=== PATIENT | female | born 1925 | race African-American/Black ===

== ENCOUNTER 2017-06-14 09:31 | Emergency (ER) | payer OTHER ==
[~2017-06-14] VITALS: Ht 170.2 cm; Wt 65.8 kg
--- NOTE | ~2017-06-14 | CR243 ---
[facility] A Service of [facility] RADIOLOGY TEXT RESULTS PATIENT: JOCELYN MANZO LOCATION: [facility] : [birth year] UNIT #: [id number] AGE: [address]: Delmy Paulson MD SEX: F ORDER DR: [id number] [facility] [address] [place], [place] [address] [id number] E MR#: [id number] Acc #: [id number] NAME: JOCELYN MANZO : 1925 SEX: F STUDY DATE/TIME: 06/14/2017 11:36 UNIT: [facility] ROOM: STUDY DESCRIPTION: CR Thoracic Spine 3 Views Attending Physician: Delmy Paulson M.D. Ordering Physician: Delmy Paulson M.D. Primary Care Physician: Erwin Parker M.D. MEDICAL IMAGING REPORT This report is preliminary unless electronic signature is present EXAM Thoracic series 06/06/2017 INDICATIONS 89-year-old female with history of fall today. Pain in the mid to lower back. TECHNIQUE 3 views of the thoracic spine were performed. COMPARISON No comparisons. FINDINGS The bones are osteoporotic. There is motion degradation. These were apparently the best images possible. Cervicothoracic junction intact. No distinct fracture or malalignment. Mild S-shaped thoracic scoliosis. There is multilevel degenerative change. Old healed granulomatous disease. Atherosclerotic calcification of the aorta. IMPRESSION 1. Limited study secondary to motion and exposure factors. 2. Osteoporosis with degenerative changes but no acute fracture or malalignment. Dictated by... Danny George M.D. THIS IS AN ELECTRONICALLY VERIFIED REPORT Danny George M.D. at 06/15/2017 7:19 AM CHARLESY/saad TD: 06/14/2017 18:25 [facility] A Service of [facility] RADIOLOGY TEXT RESULTS PATIENT: JOCELYN MANZO LOCATION: [facility] : [birth year] UNIT #: [id number] AGE: [address]: Delmy Paulson MD SEX: F ORDER DR: JOB #: [id number] MEDICAL IMAGING REPORT Page 1 of 1 COPY
--- NOTE | ~2017-06-14 | CR181 ---
[facility] A Service of [facility] RADIOLOGY TEXT RESULTS PATIENT: JOCELYN MANZO LOCATION: [facility] : [birth year] UNIT #: [id number] AGE: [address]: Delmy Paulson MD SEX: F ORDER DR: [id number] [facility] [address] [place], [place] [address] [id number] E MR#: [id number] [facility] #: [id number] NAME: JOCELYN MANZO : 1925 SEX: F STUDY DATE/TIME: 06/14/2017 11:35 UNIT: [facility] ROOM: STUDY DESCRIPTION: CR Lumbar Spine 2 or 3 Views Attending Physician: Delmy Paulson M.D. Ordering Physician: Delmy Paulson M.D. Primary Care Physician: Erwin Parker M.D. MEDICAL IMAGING REPORT This report is preliminary unless electronic signature is present EXAM Lumbar series, 06/14/2017 INDICATION 89-year-old female who fell today, pain in the mid to lower back. TECHNIQUE 3 views of the lumbar spine. COMPARISON There are no comparisons. FINDINGS The bones are osteoporotic. Vertebral body heights and alignment are preserved. No acute fracture. There is degenerative disc disease at L4-5 and L5-S1. At least mild facet arthropathy at L4-5 and L5-S1. Atherosclerotic calcifications are present. There is a probable underlying aortic aneurysm incompletely characterized on this examination but perhaps measuring up to at 4.0 cm. There is a right pelvic vascular stent. Degenerative change of both SI joints present. IMPRESSION 1. Osteoporosis. Degenerative changes but no acute fracture or malalignment. 2. Atherosclerotic disease with findings suspicious for an aortic aneurysm measuring on the order of about 4.0 cm. This is incompletely characterized or assessed with plain film technique. Dictated by... Danny George M.D. THIS IS AN ELECTRONICALLY VERIFIED REPORT Danny George M.D. at 06/15/2017 7:18 AM [facility] A Service of [facility] RADIOLOGY TEXT RESULTS PATIENT: [facility]OC[facility] MAN[id number] [birth year] UNIT #: [id number] AGE: [address]: Delmy Paulson MD SEX: F ORDER DR: JEANETTE/deepak TD: 06/14/2017 17:28 JOB #: [id number] MEDICAL IMAGING REPORT Page 1 of 1 COPY
--- NOTE | ~2017-06-14 | CT101 ---
[facility] A Service of [facility] RADIOLOGY TEXT RESULTS PATIENT: JOCELYN MANZO LOCATION: [facility] : [birth year] UNIT #: [id number] AGE: [address]: Delmy Paulson MD SEX: F ORDER DR: [id number] [facility] [address] [place], [place] [address] [id number] E MR#: [id number] [facility] #: [id number] NAME: JOCELYN MANZO : 1925 SEX: F STUDY DATE/TIME: 06/14/2017 11:12 UNIT: [facility] ROOM: STUDY DESCRIPTION: CT Maxillofacial Area Wo Cont Attending Physician: Delym Paulson M.D. Ordering Physician: Delmy Paulson M.D. Primary Care Physician: Erwin Parker M.D. MEDICAL IMAGING REPORT This report is preliminary unless electronic signature is present EXAM CT maxillofacial area 06/14/2017 HISTORY Fell at home this a.m., fell approximately 3 feet. No loss of consciousness. Fell out of bed trying to use bathroom. Contusion to the left forehead, most tenderness facial pain. TECHNIQUE CT facial bones performed without administration of intravenous contrast. Bone and soft tissue windows reviewed. Sagittal, coronal reconstructions performed. This CT exam was performed with one or more of the following radiation dose reduction techniques: automatic exposure control, adjustment of mA and/or kV according to patient size, and iterative reconstruction. FINDINGS Visualized portions of brain show no acute abnormality. Please see dedicated CT head for further assessment. The intraorbital soft tissues are unremarkable. The nasopharyngeal, oral pharyngeal, pharyngeal mucosal, retropharyngeal spaces show no acute abnormality. Note made of right palatine tonsillar tonsilliths. Extensive atherosclerotic arterial calcification. No aneurysm. Soft tissue hematoma central and left paracentral forehead measuring about 3.9 cm in diameter by about 1 cm in thickness without soft tissue defect, subcutaneous air or radiodense foreign body. Visualized calvarium intact. There is a questionable area of soft tissue irregularity left superolateral periorbital soft tissues. It is unclear if this is a raised skin lesion, traumatic laceration or bandaging artifact. Correlate with exam. There is a 3 mm projection from skin of the lateral right upper eyelid region. Also unclear if this is a raised skin lesion or post-traumatic laceration. Correlate with exam. The nasal bones are intact. The nasal septum deviates to right. The ostiomeatal complexes are patent. The bony orbital structures are intact. [facility]. [facility] A Service of [facility] RADIOLOGY TEXT RESULTS PATIENT: JOCELYN MANZO LOCATION: [facility] : [birth year] UNIT #: [id number] AGE: [address]: Delmy Paulson MD SEX: F ORDER DR: Paranasal sinuses, mastoid air cells clear. Zygomas, zygomatic arches, pterygoid plates intact. The mandible is intact. There is marked anterior subluxation of the left temporomandibular joint. This is felt secondary to chronic degenerative change and is stable in appearance compared to a CT of the head dated 04/23/2004. Extensive atherosclerotic arterial calcifications. The visualized cervical spine shows no traumatic appearing abnormality. IMPRESSION 1. No traumatic fracture. 2. 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 Similar appearance on a CT of the head dated 04/23/2004. 3. Central and left paracentral forehead hematoma measuring about 3.9 cm in diameter by about 1 cm in thickness without soft tissue defect, subcutaneous air or radiodense foreign body. 4. Question cutaneous irregularities along the lateral aspects of the periorbital soft tissues bilaterally. See discussion above. These may represent bandaging artifact or raised skin lesions. Traumatic cutaneous irregularity not excluded. Correlate with exam. 5. Extensive vascular calcification. Dictated by... Jamie Craig M.D. THIS IS AN ELECTRONICALLY VERIFIED REPORT Jamie Craig M.D. at 06/15/2017 2:07 PM ANASTASIYAK/saad TD: 06/14/2017 18:40 JOB #: [id number] MEDICAL IMAGING REPORT Page 1 of 1 COPY
--- NOTE | ~2017-06-14 | CT52 ---
[facility] A Service of [facility] RADIOLOGY TEXT RESULTS PATIENT: JOCELYN MANZO LOCATION: [facility] : [birth year] UNIT #: [id number] AGE: [address]: Delmy Paulson MD SEX: F ORDER DR: [id number] [facility] [address] [place], [place] [address] [id number] E MR#: [id number] Acc #: [id number] NAME: JOCELYN MANZO : 1925 SEX: F STUDY DATE/TIME: 06/14/2017 11:09 UNIT: [facility] ROOM: STUDY DESCRIPTION: CT Cervical Spine Wo Cont Attending Physician: Delmy Paulson M.D. Ordering Physician: Delmy Paulson M.D. Primary Care Physician: Erwin Parker M.D. MEDICAL IMAGING REPORT This report is preliminary unless electronic signature is present EXAM CT cervical spine without contrast, 06/14/2017, 1109 hours. CLINICAL HISTORY 89-year-old woman who fell at home this morning approximately 3 feet. Neck pain since fall with contusion left forehead. COMPARISON None TECHNIQUE Thin cut axial noncontrasted images were obtained from the posterior fossa through the upper thoracic spine without contrast. Sagittal and coronal reconstructions were performed. Total exam DLP 538 mGy-cm. This CT exam was performed with one or more of the following radiation dose reduction techniques: automatic exposure control, adjustment of mA and/or kV according to patient size, and iterative reconstruction. FINDINGS Limited views through the posterior fossa are negative. There is no skull base fracture. The mastoid air cells are clear. C1-2 articulation demonstrates mild spurring. There is no dens fracture. There is multilevel degenerative disc disease in the cervical spine with Schmorl nodes at the superior endplate of T4 and inferior endplate of C5. There is endplate irregularity and spurring with no fracture or subluxation. C2-3 is normal. C3-4 is normal. [facility] A Service of [facility] RADIOLOGY TEXT RESULTS PATIENT: JOCELYN MANZO [id number] [birth year] UNIT #: [id number] AGE: [address]: Delmy Paulson MD SEX: F ORDER DR: C4-5 demonstrates degenerative disc disease without central canal or foraminal stenosis. There is severe degenerative disc disease with facet arthropathy at C5-6 and C6-7. No central canal or foraminal narrowing. IMPRESSION 1. There is multilevel degenerative disc disease and facet degenerative change without acute fracture, subluxation, or canal stenosis. 2. The dens is intact. 3. Limited views through the posterior fossa are normal. There is no skull base fracture. Dictated by... Laura Kumar M.D. THIS IS AN ELECTRONICALLY VERIFIED REPORT Laura Kumar M.D. at 06/15/2017 9:27 AM GARRICK/sina TD: 06/14/2017 17:22 JOB #: [id number] MEDICAL IMAGING REPORT Page 1 of 1 COPY
--- NOTE | ~2017-06-14 | CT71 ---
[facility] A Service of [facility] & [facility] RADIOLOGY TEXT RESULTS PATIENT: JOCELYN MANZO LOCATION: [facility] : [birth year] UNIT #: [id number] AGE: [address]: Delmy Paulson MD SEX: F ORDER DR: [id number] [facility] [address] [place], [place] [address] [id number] E MR#: [id number] [facility] #: [id number] NAME: JOCELYN MANZO : 1925 SEX: F STUDY DATE/TIME: 06/14/2017 11:15 UNIT: [facility] ROOM: STUDY DESCRIPTION: CT Head Wo Contrast Attending Physician: Delmy Paulson M.D. Ordering Physician: Delmy Paulson M.D. Primary Care Physician: Erwin Parker M.D. MEDICAL IMAGING REPORT This report is preliminary unless electronic signature is present EXAM CT head, 06/14/2017 HISTORY Fell at home this a.m. Fell approximately 3 feet. No loss of consciousness. Fell out of bed trying to use bathroom. Contusion to the left forehead most tenderness facial pain. TECHNIQUE CT head performed skull base through vertex without intravenous contrast. This CT exam was performed with one or more of the following radiation dose reduction techniques: automatic exposure control, adjustment of mA and/or kV according to patient size, and iterative reconstruction. COMPARISON 04/23/2004 FINDINGS Brainstem unremarkable. Cerebellum and cerebral hemispheres show overall preservation faust matter-white matter differentiation. No intracranial hemorrhage. No evidence of acute cortical ischemia. The midline structures are nondisplaced. Basal ganglia are intact. Periventricular and deep white matter tract probable sequelae of chronic microvascular ischemia. More pronounced in the bilateral frontal lobes. No intra or extraaxial mass effect or abnormal intracranial fluid collection. The ventricles, cisterns and sulci show [id number] generalized enlargement consistent with generalized atrophy. There are cavernous carotid and distal vertebral arterial calcifications. The intraorbital soft tissues are unremarkable. No fracture. The visualized paranasal sinuses and mastoid air cells are clear. There is a frontal hematoma in the forehead region measuring about 4.1 cm in diameter and about 8.0 mm in thickness. There is no soft tissue defect, subcutaneous air or radiodense STS. [facility] A Service of [facility] & [facility] RADIOLOGY TEXT RESULTS PATIENT: JOCELYN MANZO [id number] [birth year] UNIT #: [id number] AGE: [address]: Delmy Paulson MD SEX: F ORDER DR: foreign body. IMPRESSION 1. No acute abnormality seen in the brain. If patient has ongoing neurologic symptoms, consider followup imaging. 2. Chronic changes include: Mild to moderate generalized atrophy, extensive vascular calcification, periventricular and deep white matter tract probable sequelae of chronic microvascular ischemia, more pronounced in the bilateral frontal lobes. 3. No fracture. 4. Forehead subcutaneous hematoma measuring about 4.1 cm in diameter and 8.0 mm in thickness. No associated soft tissue defect, subcutaneous air or radiodense foreign body. Dictated by... Jamie Craig M.D. THIS IS AN ELECTRONICALLY VERIFIED REPORT Jamie Craig M.D. at 06/15/2017 2:07 PM Dani TD: 06/14/2017 17:59 JOB #: [id number] MEDICAL IMAGING REPORT Page 1 of 1 COPY
== END 2017-06-14 14:14 | disposition short-term general hospital (02) ==
LOC: CED 09:31
DX: S00.83XA Contusion of other part of head, initial encounter (principal); K21.9 Gastro-esophageal reflux disease without esophagitis; E03.9 Hypothyroidism, unspecified; I12.9 Hypertensive chronic kidney disease with stage 1 through stage 4 chronic kidney disease, or unspecified chronic kidney disease; E11.22 Type 2 diabetes mellitus with diabetic chronic kidney disease; N18.9 Chronic kidney disease, unspecified; Z88.5 Allergy status to narcotic agent; Z88.8 Allergy status to other drugs, medicaments and biological substances; W06.XXXA Fall from bed, initial encounter; Y92.129 Unspecified place in nursing home as the place of occurrence of the external cause
CPT/HCPCS: 70450; 70486; 72072; 72100; 72125; 99284